=== PATIENT | male | born 1975 | race Caucasian/White ===

== ENCOUNTER 2017-08-21 23:03 | Emergency (ER) | payer BC ==
[~2017-08-21] VITALS: Ht 172.7 cm; Wt 86.2 kg
[~2017-08-21 23:03] MED LIST: ATEN-41
[2017-08-21 23:13] VITALS: BP_SYST 175
[2017-08-21] MEDS ORDERED: LORazepam 1 MG TABLET PO ONE (23:30)
[2017-08-22 00:18] VITALS: BP_SYST 159
== END 2017-08-22 00:18 | disposition home or self-care (01) ==
LOC: SED 23:03
DX: F41.9 Anxiety disorder, unspecified (principal); I10 Essential (primary) hypertension; J45.909 Unspecified asthma, uncomplicated
CPT/HCPCS: 99284

== ENCOUNTER 2019-06-09 13:02 | Emergency (ER) | payer BC, MEDICAID ==
[~2019-06-09] VITALS: Ht 172.7 cm; Wt 93.0 kg
[2019-06-09 13:05] VITALS: BP_SYST 126
--- NOTE | 2019-06-09 13:10 | NUR ---
Patient triaged and placed in waiting room. VSS and patient appears in no acute distress at this time. Accompanied by , awaiting available bed, and MD notified of need for MSE.
--- NOTE | 2019-06-09 14:00 | NUR ---
DR JULIEN IN ROOM FOR EXAM
--- NOTE | 2019-06-09 14:21 | NUR ---
BROUGHT BACK TO BED #7 AND TRIAGED. REPORT GIVEN TO KENNETH
--- NOTE | 2019-06-09 14:41 | NUR ---
PT IN BED 7, LAYING IN BED, IN NAD. RESP EVEN AND UNLABORED, ON RA @99%. PT COMES WITH C/O COUGH X 2 DAYS AND CONGESTION. DENIES ANY CHEST PAIN, MILD SOB AT NIGHT WHILE SLEEPING. SKIN W/D/I. MOTHER AT BEDSIDE.
[2019-06-09 15:10] VITALS: BP_SYST 126
--- NOTE | 2019-06-09 15:16 | NUR ---
Patient given written and verbal discharge instructions and verbalizes understanding. ER MD discussed with patient the results and treatment provided. Patient in stable condition. ID arm band removed. Patient educated on pain management and to follow up with PMD. Pain Scale . Opportunity for questions provided and answered. Medication side effect fact sheet provided.
--- NOTE | 2019-06-09 15:16 | NUR ---
Patient given written and verbal discharge instructions and verbalizes understanding. ER discussed with patient the results and treatment provided. Patient in stable condition. ID arm band removed. Patient educated on pain management and to follow up with PMD. Pain Scale . Opportunity for questions provided and answered. Medication side effect fact sheet provided. Addendum: 06/09/19 at 1528 by [email or web address] note written by omi velez rn
== END 2019-06-09 15:10 | disposition home or self-care (01) ==
LOC: SED 13:02
DX: J06.9 Acute upper respiratory infection, unspecified (principal); F17.210 Nicotine dependence, cigarettes, uncomplicated; J45.909 Unspecified asthma, uncomplicated; I10 Essential (primary) hypertension; F41.9 Anxiety disorder, unspecified; Z71.6 Tobacco abuse counseling; Z79.899 Other long term (current) drug therapy
CPT/HCPCS: 71045; 99283